=== PATIENT | male | born 1995 | race Caucasian/White ===

== ENCOUNTER 2017-07-14 13:59 | Outpatient (CLI) | payer OTHER | END 2017-07-14 14:00 | disposition EMS.NT | LOC: EMS 13:59 | PROVIDERS: ATTEND Surgery | DX: T54.91XA Toxic effect of unspecified corrosive substance, accidental (unintentional), initial encounter (principal); H57.12 Ocular pain, left eye; Y92.69 Other specified industrial and construction area as the place of occurrence of the external cause; Y93.H9 Activity, other involving exterior property and land maintenance, building and construction; Y99.0 Civilian activity done for income or pay ==

== ENCOUNTER 2017-07-14 14:54 | Emergency (ER) | payer BC, OTHER ==
[2017-07-14 15:12] VITALS: BP 122/59
--- NOTE | 2017-07-14 16:58 | ED Physician Documentation ---
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 Rinsed it out right away with tap water. Has redness and swelling of conjunctiva. Mild blurred vision.) Quality / character: Burning Associated symptoms: Redness, Swelling Contributing factors: Chemical exposure, acid (chlorine truck car and bus cleaner) Similar symptoms before: Has not had sx before Recently seen: Not recently seen Review of Systems Eyes: reports: Decreased vision (blurred) Nose: reports: Rhinorrhea / runny nose, Congestion Throat: reports: Sore throat Respiratory: reports: Cough PD PAST MEDICAL HISTORY - Past Medical History Past Medical History: No - Past Surgical History Past Surgical History: No - Present Medications Home Medications: Ambulatory Orders Medication Instructions Recorded Confirmed Ketorolac 0.45% Ophth Drops 2 each OPTH QID #1 bottle 07/14/17 [Acuvail] - Allergies Allergies/Adverse Reactions: Allergies Allergy/AdvReac Type Severity Reaction Status Date / Time tree nut Allergy Anaphylaxis Verified 07/14/17 15:13 shellfish derived AdvReac Anaphylaxis Verified 07/14/17 15:13 - Social History Does the pt smoke?: No Smoking Status: Never smoker Does the pt drink ETOH?: Yes ETOH Use: Beer, Liquor Does the pt have substance abuse?: Yes Substance Use and Type: Marijuana - Immunizations Immunizations are current?: Yes - POLST Patient has POLST: No PD ED PE NORMAL - Vitals Vital signs reviewed: Yes - General General: Alert and oriented X 3, Well developed/nourished - HEENT HEENT: PERRL, EOMI, Other (redness and swelling of left conjunctiva. ) PD ED PE EXPANDED - Eyes Eyes: PERRL, EOMI, Fluorescein uptake (small superficial left eye 4 o-clock not in visual axis. ), Anterior chambers clear, Normal fundi. No: Eyelid injury, Eyelid swelling, Exudate, Conj/sclera FB, Corneal FB, Ant chamber cells/flare Results - Vitals Vitals: Oxygen O2 Source Room air PD MEDICAL DECISION MAKING - ED course Complexity details: considered differential, d/w patient Departure - Departure Disposition: 01 Home, Self Care Clinical Impression: Chemical exposure of eye Chemical conjunctivitis Qualifiers: Laterality: left Qualified Code(s): H10.212 - Acute toxic conjunctivitis, left eye Condition: Stable Record reviewed to determine appropriate education?: Yes Instructions: ED Chemical Conjunctivitis Follow-Up: Ean Pichardo MD [Provider Admit Priv/Credential] - Lee Clements MD [Provider Admit Priv/Credential] - Prescriptions: Ketorolac 0.45% Ophth Drops [Acuvail] 2 each OPTH QID #1 bottle Comments: Use the proparacaine drops as needed for discomfort. Use the ketorolac anti- inflammatory eyedrops 1-2 drops in the eye 4 times a day for the next several days. Call ophthalmology tomorrow for follow-up appointment likely on . Recheck if worsening symptoms. Discharge Date/Time: 07/14/17 18:02
[2017-07-14] MEDS ORDERED: KETOROLAC 0.45% OPHTH DROPS LEFTEYE STA (17:22)
== END 2017-07-14 18:02 | disposition home or self-care (01) ==
LOC: ED 14:54
DX: T54.3X1A Toxic effect of corrosive alkalis and alkali-like substances, accidental (unintentional), initial encounter (principal); H10.212 Acute toxic conjunctivitis, left eye; Y99.0 Civilian activity done for income or pay
CPT/HCPCS: 1040M; 99283; A9270